=== PATIENT | female | born 1935 | race Caucasian/White ===

== ENCOUNTER → 2024-10-25 | Outpatient (CLI) | payer MEDICARE, SELFPAY ==
--- NOTE | 2024-10-25 12:00 | XR_ITS ---
Examination: CT chest, without intravenous contrast. Sagittal and coronal 2-D reconstructions. Exam date and time: October 25, 2024 1217 hours INDICATIONS: Breast carcinoma diagnosis 2 months ago, coughing one year CTDI:vol (mGy) 14.1 DLP: (mGycm) 381 Technique: Multiple 3.0 mm axial sections of the chest to been obtained. Bone and lung density settings are obtained. Sagittal and coronal 2-D reconstructions have been obtained. Low dose protocols were performed. One or more of the following dose reduction techniques were used; automated exposure control, adjustment of the mA and/or KV according to patient size, use of iterative reconstruction technique. Findings: Heavy thoracic aortic calcification no aneurysmal dilatation Pulmonary artery segments are not enlarged. Heavy calcification left anterior descending left circumflex right coronary arteries. 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
== END | disposition home or self-care (01) ==
LOC: CCTX 11:35
PROVIDERS: PCP Family Medicine; Referring Provider Internal Medicine; Visit Provider Internal Medicine
DX: R91.8 Other nonspecific abnormal finding of lung field (principal); C50.011 Malignant neoplasm of nipple and areola, right female breast
CPT/HCPCS: 71250